=== PATIENT | male | born 1945 | race Caucasian/White ===

== ENCOUNTER → 2016-10-19 | Outpatient (CLI) | payer OTHER ==
--- NOTE | ~2016-10-19 | US5 ---
[facility] A Service of [facility] RADIOLOGY TEXT RESULTS PATIENT: MARK DE JESUS LOCATION: [facility] : 47 UNIT #: [id number] AGE: [address]: TESS CUMMINS MD SEX: M ORDER DR: [id number] [facility] [address] [place], [place] [address] [id number] O MR#: [id number] Acc #: [id number] NAME: MARK DE JESUS : 1945 SEX: M STUDY DATE/TIME: 10/19/2016 10:46 UNIT: [facility] ROOM: STUDY DESCRIPTION: US Abdominal Complete Attending Physician: Tess Cummins M.D. Referring Physician: Tess Cummins M.D. Ordering Physician: Tess Cummins M.D. Primary Care Physician: Tess Cummins M.D. MEDICAL IMAGING REPORT This report is preliminary unless electronic signature is present EXAM Abdominal ultrasound complete 10/19/2016 HISTORY Abnormally elevated liver enzymes at doctor's appointment 2 weeks ago. FINDINGS The liver demonstrates an increase in echotexture with attenuation of the ultrasound beam characteristic of fatty infiltration. No cystic or solid mass lesions were seen in the liver. The intra and extrahepatic bile ducts are not dilated. The gallbladder is surgically absent as per patient history. The common duct measures 4 mm. The pancreas is normal. The spleen is enlarged measuring 14.7 cm in greatest diameter. The visualized portions of the abdominal aorta and inferior vena cava are within normal limits. The kidneys are normal bilaterally. IMPRESSION 1. Fatty infiltration of the liver. 2. Surgical absence of the gallbladder. 3. Splenomegaly. Dictated by... Jon Andrews M.D. THIS IS AN ELECTRONICALLY VERIFIED REPORT Jon Andrews M.D. at 10/19/2016 5:14 PM JULIÁN/wiley TD: 10/19/2016 16:05 JOB #: [id number] MEDICAL IMAGING REPORT Page 1 of 1 COPY
== END | disposition home or self-care (01) ==
LOC: CGUS 10:10
DX: R79.9 Abnormal finding of blood chemistry, unspecified (principal); K76.0 Fatty (change of) liver, not elsewhere classified; R16.1 Splenomegaly, not elsewhere classified; Z90.49 Acquired absence of other specified parts of digestive tract
CPT/HCPCS: 76700